=== PATIENT | male | born 1960 | race Caucasian/White ===

== ENCOUNTER → 2019-05-12 | Outpatient (CLI) | payer OTHER, BC ==
[~2019-05-12] MED LIST: ALDACTONE50 MG PO; ALLOPURINOL 30300 M2 PO; ALLOPURINOL 30300 M3 PO; ATIVAN1 MG PO; CARVEDILOL25 MG PO; CELEXA10 MG PO; COREG 25 MG PO; COZAAR 50 MG TA50 M2 PO; CYCLOBENZAPRINE5 MG PO; DIGOXIN250 MCG PO; HALOPERIDOL 5 MG5 MG PO; HALOPERIDOL5 MG/1 ML IM; LASIX 40 MG TAB40 M1 GT; LASIX 40 MG TAB40 M1 PO; LIDODERM 5%1 PATC1 TRANSDERM; MAG6464 MG PO; MAGNESIUM OXID400 MG PO; MEDROLDOSEPACK PO; MICARDIS 20MG T20 M1 PO; PACERONE 200 M200 M1 PO; PEPCID20 MG PO; POTASSIUM20 PO; Pradaxa PO; SEROQUEL 25 MG25 M1 PO; SPIRONOLACTONE 25 MG PO; VITAMIN B-1100 M1 PO; VOL-NATE TABLE1 EACH PO; VOLTAREN GEL 1100 G1 TOP
== END ==
LOC: SJCVC 13:06
DX: I48.21 Permanent atrial fibrillation (principal); R94.31 Abnormal electrocardiogram [ECG] [EKG]; I11.0 Hypertensive heart disease with heart failure; I50.9 Heart failure, unspecified; K70.31 Alcoholic cirrhosis of liver with ascites; E78.5 Hyperlipidemia, unspecified; Z79.82 Long term (current) use of aspirin; Z79.899 Other long term (current) drug therapy

== ENCOUNTER → 2019-11-23 | Outpatient (CLI) | payer OTHER, BC | LOC: SJCVCIMAG 07:20 | PROVIDERS: ATTEND Internal Medicine | DX: I08.8 Other rheumatic multiple valve diseases (principal); I42.9 Cardiomyopathy, unspecified; I48.21 Permanent atrial fibrillation; I11.0 Hypertensive heart disease with heart failure; I50.9 Heart failure, unspecified; K70.31 Alcoholic cirrhosis of liver with ascites; E78.5 Hyperlipidemia, unspecified; Z79.899 Other long term (current) drug therapy ==

== ENCOUNTER → 2020-05-23 | Outpatient (CLI) | payer OTHER, BC | LOC: SJCVC 11:11 | PROVIDERS: ATTEND Internal Medicine | DX: R94.31 Abnormal electrocardiogram [ECG] [EKG] (principal); I48.21 Permanent atrial fibrillation; K70.31 Alcoholic cirrhosis of liver with ascites; E78.5 Hyperlipidemia, unspecified; M10.9 Gout, unspecified; I25.5 Ischemic cardiomyopathy; I11.0 Hypertensive heart disease with heart failure; I50.9 Heart failure, unspecified; Z79.01 Long term (current) use of anticoagulants; Z88.0 Allergy status to penicillin; Z79.899 Other long term (current) drug therapy ==

== ENCOUNTER → 2020-11-25 | Outpatient (CLI) | payer OTHER, BC | LOC: SJCVC 13:02 | PROVIDERS: ATTEND Internal Medicine | DX: R94.31 Abnormal electrocardiogram [ECG] [EKG] (principal); I11.0 Hypertensive heart disease with heart failure; I50.32 Chronic diastolic (congestive) heart failure; I48.21 Permanent atrial fibrillation; E78.5 Hyperlipidemia, unspecified; K70.31 Alcoholic cirrhosis of liver with ascites; G47.30 Sleep apnea, unspecified; Z79.899 Other long term (current) drug therapy ==

== ENCOUNTER → 2020-12-31 | Outpatient (CLI) | payer OTHER, BC | LOC: SJCVC 09:57 | PROVIDERS: ATTEND Internal Medicine | DX: I25.10 Atherosclerotic heart disease of native coronary artery without angina pectoris (principal); I50.9 Heart failure, unspecified; I11.0 Hypertensive heart disease with heart failure; G47.30 Sleep apnea, unspecified; Z79.899 Other long term (current) drug therapy ==